=== PATIENT | female | born 2000 | race Caucasian/White ===

== ENCOUNTER 2020-09-14 10:12 | Outpatient (REF) | payer OTHER, MEDICAID, SELFPAY ==
[2020-09-15 10:10] LABS: BV Int Neg Control Negative (Negative); BV Int Pos Control Positive (Positive)
== END 2020-09-14 10:13 | disposition home or self-care (01) ==
LOC: HO.LAB 10:12
PROVIDERS: PCP Internal Medicine; Referring Provider Internal Medicine; Visit Provider Advanced Practice Midwife
DX: Z20.828 Contact with and (suspected) exposure to other viral communicable diseases (principal); Z01.419 Encounter for gynecological examination (general) (routine) without abnormal findings; N89.8 Other specified noninflammatory disorders of vagina; Z97.5 Presence of (intrauterine) contraceptive device
CPT/HCPCS: 87480; 87510; 87660

== ENCOUNTER 2021-12-19 10:14 | Outpatient (REF) | payer MEDICAID, SELFPAY ==
[2021-12-19 16:34] LABS: CT PCR NOT DETECTED (Not Detect.); NG PCR NOT DETECTED (Not Detect.)
== END 2021-12-19 10:15 | disposition home or self-care (01) ==
LOC: HO.LAB 10:14
PROVIDERS: PCP Internal Medicine; Visit Provider Advanced Practice Midwife
DX: Z01.419 Encounter for gynecological examination (general) (routine) without abnormal findings (principal); Z20.2 Contact with and (suspected) exposure to infections with a predominantly sexual mode of transmission
CPT/HCPCS: 87491; 87591

== ENCOUNTER 2023-05-27 13:52 | Outpatient (REF) | payer OTHER, SELFPAY ==
[2023-05-27 16:34] LABS: Cholesterol 156 mg/dL; HDL Cholesterol 52 mg/dL; LDL Cholesterol Calculated 94 mg/dl; Triglycerides 52 mg/dL
[2023-05-27 16:51] LABS: TSH reflex Free T4 1.98 uIU/mL (0.32-4.0); Vitamin D 25-OH Total 34.3 ng/mL (>30)
== END 2023-05-27 13:53 | disposition home or self-care (01) ==
LOC: HO.HHCL 13:52
PROVIDERS: Visit Provider Registered Nurse
DX: G54.0 Brachial plexus disorders (principal)
CPT/HCPCS: 36415; 80061; 82306; 84443

== ENCOUNTER 2025-09-06 16:03 | Outpatient (REF) | payer OTHER, SELFPAY ==
--- OUTSIDE RECORDS SUMMARY | 2025-09-06 15:15 | XMS_ITS | Encounter Summary ---
Author Organization [employer] Address [address] [place] [address] 7 [place] [address] Care Team Providers Care Surgical Oncologist Name Role Phone Cheyenne Varner [facility] Primary Care Provider [phone] Reason for Visit * Reason Comments pap Encounter Details Date Type Department Care Team (Latest Contact Info) Description 09/06/2025 3:15 PM EST Procedure Visit [facility] [address] [place] [address] Naina Flood CN [address] [place] [address] Routine cervical smear (Primary Dx); Screening examination for venereal disease Social History Tobacco Use Types Packs/Day Years Used Date Smoking Tobacco: Never Passive Smoke Exposure: Never Smokeless Tobacco: Never Tobacco Cessation:Counseling Given: Not Answered Alcohol Use Standard Drinks/Week Comments Never 0 (1 standard drink = 0.6 oz pur e alcohol) Depression Answer Date Recorded Patient Health Questionnaire-9 Score 0 11/22/2024 Patient Health Questionnaire-9 Score 0 11/22/2024 Last PHQ-9: Questionnaire Data Not on file 0 11/22/2024 Housing Stability Answer Date Recorded What is your housing situation today? I have montez mcneal 11/22/[address] you li ve. Do you have problems with any of the following? None of the above 11/22/2024 Food Insecurity Answer Date Recorded Within the past 12 months, y ou worried that your food would run out before you got money to buy more: Never True 11/22/2024 Within the past 12 months,th e food you bought just didn't last and you didn't have enough money to get more: Never True 07/2025 Transportation Answer Date Recorded In the past 12 months, has l ack of transportation kept you from medical appts, meetings, work or from getting things needed for daily living? No 11/22/2024 Utilities Answer Date Recorded In the past 12 months, has t he electric, gas, oil or water company threatened to shut off services in your home? No 11/22/2024 Depression Answer Date Recorded Patient Health Questionnaire-2 Score 0 11/22/2024 Internet Access Answer Date Recorded Internet Access Q1 Yes 11/22/2024 Internet Access Q2 Not on file 11/22/2024 Comments No Intention Date Recorded No desire to become (finding) 1 11/06/2024 Sex and Gender Information Value Date Recorded Sex Assigned at Female 08/12/2022 10:37 AM EDT Legal Sex Female 10:37 AM EDT Gender Identity Choose not to disclose 10:37 AM EDT Sexual Orientation Choose not to disclose 2021 10:37 AM EDT documented as of this encounter Last Filed Vital Signs Vital Sign Reading Time Taken Comments Blood Pressure 110/68 09/06/2025 3:42 PM EST Pulse 91 09/06/2025 3:42 PM EST Temperature 36.1 C (97 F) 09/06/2025 3:42 PM EST Respiratory Rate 14 09/06/2025 3:42 PM EST Oxygen Saturation 98% 09/06/2025 3:42 PM EST Inhaled Oxygen Concentration - - Weight 70.2 kg (154 lb 12.8 oz) 09/06/2025 3:42 PM EST Height - - Body Mass Index 26.57 11/22/2024 10:01 AM EST documented in this encounter Progress Notes * Naina Flood CNM - 09/06/2025 3:15 PM EST Subjective Patient ID: Madonna Nguyen is a 25 y.o. adult who presents for pap Gonorrhea/Chlamydia, HIV, syphilis, Hep C neg 04/2020. Per previous notes, last pap 2019. Last sexually active 4-6 weeks ago with former AMAB partner. Vaginal and oral sex. Would like STI testing today. Noted some irritation after using new vaginal wash which seems to have resolved. 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 Not planning in the next year. Happy with condoms. Had ParaGard expulsion, mood changes on oral contraceptive pill. Monthly menses x 5 days. Heavier first two days, but manageable. Cramping responds to Midol. Review of Systems Genitourinary: Negative for dyspareunia, dysuria, frequency, genital sores, hematuria, menstrual problem, pelvic pain, urgency, vaginal bleeding, vaginal discharge and vaginal pain. No abnormal pap, no abnormal bleeding, no breast pain, no breast mass, no nipple discharge Objective BP 110/68 (BP Location: Left arm, Patient Position: Sitting, BP Cuff Size: Adult) Pulse 91 Temp97 ??F (36.1 ??C) (Oral) Resp 14 Wt 154 lb 12.8 oz (70.2 kg) LMP 08/12/2025 (Exact Date) SpO2 98% BMI 26.57 kg/m?? Physical Exam Bullard Operator present: declines mechanical intern. Constitutional: Appearance: Normal appearance. Chest: Breasts: Right: Normal. No swelling, bleeding, inverted nipple, mass, nipple discharge, skin change or tenderness. Left: Normal. No swelling, bleeding, inverted nipple, mass, nipple discharge, skin change or tenderness. Genitourinary: General: Normal vulva. Labia: Right: No rash, tenderness, lesion or injury. Left: No rash, tenderness, lesion or injury. Vagina: Normal. No signs of injury and foreign body. No vaginal discharge, erythema, tenderness, bleeding or lesions. Cervix: No cervical motion tenderness, discharge, friability, lesion, erythema, cervical bleeding or eversion. Uterus: Normal. Not enlarged and not tender. Adnexa: Right adnexa normal and left adnexa normal. Right: No mass, tenderness or fullness. Left: No mass, tenderness or fullness. Lymphadenopathy: Upper Body: Right upper body: No supraclavicular or axillary adenopathy. Left upper body: No supraclavicular or axillary adenopathy. Neurological: Mental Status: Solanny is alert. Psychiatric: Mood and Affect: Mood normal. Behavior: Behavior normal. Assessment/Plan Diagnoses and all orders for this visit: Routine cervical smear - Pap Smear Pap 3 y if normal. Will contact with results and plan. No discharge on exam. If yeast/bacterial vaginosis on pap, will treat. Screening examination for venereal disease - STI testing add on (NG, CT, Trich) - Chlamydia/N. Gonorrhoeae RNA, TMA, Throat; Future - Syphilis Screen; Future - HIV-1/2 Antigen and Antibodies, Fourth Generation, with Reflexes; Future - Hepatitis C Antibody with Reflex to HCV, RNA, Quantitative, Real-Time PCR; Future - Hepatitis B surface antigen, EIA; Future - Hepatitis B Surface Antibody, Qualitative; Future - Hepatitis B Core Antibody, Total; Future Oral, pap based and serum STI labs ordered. Briefly discussed PrEP and DoxyPEP. Let me know if interested in either. Happy with condoms, aware of EC at pharmacy. documented in this encounter Plan of Treatment Scheduled Orders Name Type Priority Associated Diagnoses Order Schedule Pap Smear Pathology and Cytology Routine Routine cervical smear Ordered: 09/06/2025 STI testing add on (NG, CT, Trich) Pathology and Cytology Routine Screening examination for venereal disease Ordered: 09/06/2025 Chlamydia/N. Gonorrhoeae RNA, TMA, Throat Microbiology Routine Screening examination for venereal disease Expected: 09/06/2025 (Approximate), Expires: 09/06/2026 Syphilis Screen Lab Routine Screening examination for venereal disease Expected: 09/06/2025 (Approximate), Expires: 09/06/2026 HIV-1/2 Antigen and Antibodies, Fourth Generation, with Reflexes Lab Routine Screening examination for venereal disease Expected: 09/06/2025 (Approximate), Expires: 09/06/2026 Hepatitis C Antibody with Reflex to HCV, RNA, Quantitative, Real-Time PCR Lab Routine Screening examination for venereal disease Expected: 09/06/2025 (Approximate), Expires: 09/06/2026 Hepatitis B surface antigen, EIA Lab Routine Screening examination for venereal disease Expected: 09/06/2025 (Approximate), Expires: 09/06/2026 Hepatitis B Surface Antibody, Qualitative Lab Routine Screening examination for venereal disease Expected: 09/06/2025 (Approximate), Expires: 09/06/2026 Hepatitis B Core Antibody, Total Lab Routine Screening examination for venereal disease Expected: 09/06/2025 (Approximate), Expires: 09/06/2026 documented as of this encounter Visit Diagnoses Diagnosis Routine cervical smear- Primary Screening for malignant neoplasm of the cervix Screening examination for venereal disease documented in this encounter Additional Health Concerns Assessment Noted Time PHQ-9 Depression Total Score: 0 11/22/19 25 10:14 AM EST documented as of this encounter Care Teams Surgical Oncologist Relationship Specialty Start Date End Date Cheyenne Varner FNP [address] [place] [id number] PCP - General Family Medicine 12/23/22 documented as of this encounter
--- OUTSIDE RECORDS SUMMARY | 2025-09-06 19:25 | XMS_ITS | Clinical Summary ---
Author Organization [employer] Address [address] [facility] [address]t [place] [address] Care Team Providers Care Lion Tamer Name Role Phone Cheyenne Varner [facility] Primary Care Provider [phone] Allergies No known active allergies Medications * This document contains information received from the source organization and may not represent a complete record from that organization. magnesium oxide (Mag-Ox) 400 mg tablet 400 mg in the morning. Active ergocalciferol (Vitamin D-2) 1.25 MG (45217 UT) capsule Take 2,000 mg by mouth in the morning. Active Ascorbic Acid (vitamin C) 250 MG tablet Take 250 mg by mouth in the morning. Active Active Problems Problem Noted Date Diagnosed Date LAVELLE (generalized anxiety disorder) 06/02/2023 Overview (06/27/2023): 1. Hx of excessive worrying/social anxiety. Denies SI or thoughts of self harm. No sleep disturbance. No current or former medication use. No hx of therapy. No family hx of schizophrenia or mood disorder 2. Buproprion 150mg XL Assessment & Plan (06/27/2023 1:45 PM EDT): Doing well overall Continue current regimen Follow up in person 8 weeks Assessment & Plan (06/06/2023 10:23 AM EDT): Patient with excessive anxiety symptoms (difficulty to control worry, on edge, sleep disturbance and fatigued). Symptoms occur nearly everyday and have been present for the last eight months as reported by patient. Symptoms are causing significant distress affecting her academic performance. Madonna denies current SI. Presentation of symptoms in the context of transitioning careers and history of anxiety since high school. Patient will benefit from receiving OP individual therapy and meditation techniques to help decrease anxiety symptoms. At this time Madonna Nguyen meets criteria for Visit Diagnoses: Problem List Items Addressed This Visit Other LAVELLE (generalized anxiety disorder) Patient ready to address current needs Yes Strengths include creativity and writing skills. Madonna likes journaling and make personalized postcards. PLAN: 1. Follow up with [facility] [place]: Not recommended for follow-up 2. Patient goal is to feel less depressed and continue her college education 3. Behavioral Recommendations a. Start OP individual therapy b. Incorporate physical exercise into daily routine c. Practice mindfulness techniques Thoracic outlet syndrome 05/26/2023 Encounters Date Type Department Care Team Description 09/06/2025 3:15 PM EST Procedure Visit [facility] MEDICINE [address] [place] [id number] Naina Flood CNM Routine cervical smear (Primary Dx); Screening examination for venereal disease 09/06/2025 Travel 09/05/2025 Telephone [facility] [address] [place] [phone] Naina Flood CNM chart prep from Last 3 Months Immunizations Immunization Administration Dates Next Due DTaP 05/31/2003, 1,1999,08/13 HPV, Quadrivalent 07/13/2014,11/11/2013 Hep A, Unspecified 10/26/2008,05/03/2008 Hep B, Unspecified 05/27/2003,1999, 999 HiB, unspecified 05/25/2003,08/14/2000, 0 IPV 11/24/2003, 3,1999,10/17,1999 Influenza Injectable Quadriv alant Preservative Free IIV4 MDCK 09/01/2018 Influenza injectable quadriv alent preservative free 10/09/2021,12/21/2019,11/11/2013 Influenza live intranasal qu adrivalent LIAV4 07/13/2014 Influenza live intranasal trivalent 08/23/2008 Influenza, IIV3, injectable 09/18/2016, 5 Influenza, Unspecified 10/22/2012,08/22/2010,06/2009 Influenza, live, intranasal 08/23/2008 Influenza, seasonal, injecta ble, preservative free 11/22/2024 MMR 10/09/2007,05/27/2003 Meningococcal ACWY, unspecified 02/20/2011 Meningococcal B, Omv 09/18/2016 Meningococcal MCV4P ACYW-135 09/14/2015 Moderna Covid-19 Vaccine 6+ Bivalent 02/20/2023 Tdap 10/09/2021,09/01/2018,02/20/2011 Varicella 05/03/2008,05/27/2003 Family History Medical History Relation Name Comments Breast cancer Neg Hx Colon cancer Neg Hx Ovarian cancer Neg Hx Social History Tobacco Use Types Packs/Day Years [...] not to disclose 2021 10:37 AM EDT Last Filed Vital Signs Vital Sign Reading Time Taken Comments Blood Pressure 110/68 09/06/2025 3:42 PM EST Pulse 91 09/06/2025 3:42 PM EST Temperature 36.1 C (97 F) 09/06/2025 3:42 PM EST Respiratory Rate 14 09/06/2025 3:42 PM EST Oxygen Saturation 98% 09/06/2025 3:42 PM EST Inhaled Oxygen Concentration - - Weight 70.2 kg (154 lb 12.8 oz) 09/06/2025 3:42 PM EST Height 162.6 cm (5' 4 ) 11/22/2024 10:0 1 AM EST Body Mass Index 26.57 11/22/2024 10:01 AM EST Plan of Treatment Health Maintenance Due Date Last Done Comments Disability Screening 1999 Hepatitis A Vaccines (2 of 2 - Risk 2-dose series) 04/25/2009 10/26/2008, 05/03/2008 Meningococcal B Vaccine (2 of 2 - Bexsero SCDM 2-dose series) 03/19/2017 09/18/2016 Pap Smear 2020 COVID-19 Vaccine ( season) 2025 02/20/2023, 10/09/2021, 03/07/2021, Additional history exists Influenza Vaccine (#1) 2025 , 10/09/2021, 12/21/2019, Additional history exists Alcohol/Substance Use Screening 11/22/2025 11/22/2024 Depression Screening 11/22/2025 11/22/2024, 11/22/19 SDOH Screening 11/22/2025 11/22/2024 Family Planning (PISQ) 09/06/2026 09/06/2025 Tobacco Screening 09/06/2026 09/06/2025 DTaP/Tdap/Td Vaccines (8 - Td or Tdap) 10/09/2031 10/09/2021, 09/01/2018, 02/20/2011, Additional history exists Zoster Vaccines (1 of 2) 2049 RSV Patients and Patients Aged 60 years or older (1 - 1-dose 75+ series) 2074 HIB Vaccines Completed 05/25/2003, 11/1999, 06/23/2000 Hepatitis B Vaccines Completed 05/27/2003, 1999, 1999 IPV Vaccines Completed 11/24/2003, 05/13, 1999, Additional history exists HPV Vaccines Completed 07/13/2014, 11/11/2013 Meningococcal Vaccine Completed 09/14/2015, 011 HIV Screening Completed 05/05/2020 Hepatitis C Screening Completed 05/05/2020 Pneumococcal Vaccine: Pediatrics (0 to 5 Years) and At-Risk Patients (6 to 49) Years Aged Out No longer eligible based on patient's age to complete this topic RSV under 20 months Aged Out No longe r eligible based on patient's age to complete this topic Rotavirus Vaccines Aged Out No longer eligible based on patient's age to complete this topic Procedures Procedure Name Priority Date/Time Associated Diagnosis Comments ZZZ HISTORICAL HEPATITIS C AB W/REFL TO HCV RNA, QN, PCR Routine 05/05/2020 9:32 AM EDT HIV 1/2 ANTIGEN/ANTIBODY, FOURTH GENERATION W/RFL Routine 05/05/2020 9:32 AM EDT from Last 3 Months or Most Recently Relevant to Health Maintenance Results * HEPATITIS C AB W/REFL TO HCV RNA, QN, PCR (05/05/2020 9:32 AM EDT) HEPATITIS C ANTIBODY NON-REACT AROLDO NON-REACT AROLDO [facility] INDEX 0.01 <1.00 [facility] Comment: HCV antibody was non-reactive. There is no laboratory evidence of HCV infection. In most cases, no further action is required. However, if recent HCV exposure is suspected, a test for HCV RNA (test code 56293) is suggested. For additional information please refer to http://[employer]/faq/DFL11k6 (This link is being provided for informational/ educational purposes only.) HEPATITIS C ANTIBODY NON-REACT AROLDO NON-REACT AROLDO [facility] INDEX 0.01 <1.00 [facility] Comment: HCV antibody was non-reactive. There is no laboratory evidence of HCV infection. In most cases, no further action is required. However, if recent HCV exposure is suspected, a test for HCV RNA (test code 22413) is suggested. For additional information please refer to http://[employer]/faq/BSN00w8 (This link is being provided for informational/ educational purposes only.) HEPATITIS C ANTIBODY NON-REACT AROLDO NON-REACT AROLDO [facility] INDEX 0.01 <1.00 [facility] Comment: HCV antibody was non-reactive. There is no laboratory evidence of HCV infection. In most cases, no further action is required. However, if recent HCV exposure is suspected, a test for HCV RNA (test code 12486) is suggested. For additional information please refer to http://[employer]/faq/ZRI58z0 (This link is being provided for informational/ educational purposes only.) HEPATITIS C ANTIBODY NON-REACT AROLDO NON-REACT AROLDO [facility] INDEX 0.01 <1.00 [facility] Comment: HCV antibody was non-reactive. There is no laboratory evidence of HCV infection. In most cases, no further action is required. However, if recent HCV exposure is suspected, a test for HCV RNA (test code 81475) is suggested. For additional information please refer to http://[employer]/faq/IQA95o6 (This link is being provided for informational/ educational purposes only.) 05/05/2020 9:32 AM EDT us Peggy See MD HISTORICAL/NON ORDERABLE LAB S Final Result [facility] [address] * HIV 1/2 ANTIGEN/ANTIBODY,FOURTH GENERATION W/RFL (05/05/2020 9:32 AM EDT) HIV-1/2 ANTIGEN AND ANTIBODIES, 4TH GENERATION W/ REFLEX NON-REACT AROLDO NON-REACT AROLDO [facility] Comment: HIV-1 antigen and HIV-1/HIV-2 antibodies were not detected. There is no laboratory evidence of HIV infection. PLEASE NOTE: This information has been disclosed to you from records whose confidentiality may be protected by state law. If your state requires such protection, then the state law prohibits you from making any further disclosure of the information without the specific written consent of the person to whom it pertains, or as otherwise permitted by law. A general authorization for the release of medical or other information is NOT sufficient for this purpose. For additional information please refer to http://[employer]/faq/GNL303 (This link is being provided for informational/ educational purposes only.) The performance of this assay has not been clinically validated in patients less than 2 years old. HIV-1/2 ANTIGEN AND ANTIBODIES, 4TH GENERATION W/ REFLEX NON-REACT AROLDO NON-REACT AROLDO [facility] Comment: HIV-1 antigen and HIV-1/HIV-2 antibodies were not detected. There is no laboratory evidence of HIV infection. PLEASE NOTE: This information has been disclosed to you from records whose confidentiality may be protected by state law. If your state requires such protection, then the state law prohibits you from making any further disclosure of the information without the specific written consent of the person to whom it pertains, or as otherwise permitted by law. A general authorization for the release of medical or other information is NOT sufficient for this purpose. For additional information please refer to http://[employer]/faq/UXO637 (This link is being provided for informational/ educational purposes only.) The performance of this assay has not been clinically validated in patients less than 2 years old. 05/05/2020 9:32 AM EDT us Peggy See MD LAB BLOOD ORDERABLES Final R esult [facility] [address] [place] [address], from Last 3 Months or Most Recently Relevant to Health Maintenance Insurance [employer] OPEN ACCESS Care Teams Lion Tamer Relationship Specialty Start Date End Date Cheyenne Varner FNP [address] [place] [address] PCP - General Family Medicine 12/23/22
--- OUTSIDE RECORDS SUMMARY | 2025-09-06 19:25 | XMS_ITS | Encounter Summary ---
Author Organization [employer] Address [address] [facility] 7 [place] [address] Care Team Providers Care County Adviser Name Role Phone Cheyenne Varner AWS DEVELOPER Primary Care Provider [phone] Reason for Visit * Reason Onset Date Comments chart prep 09/05/2025 Encounter Details Date Type Department Care Team ([facility] Contact Info) Description 09/05/2025 Telephone [facility] [address] [place] [address] Naina Flood CNM [address] [place] [address] chart prep Social History Tobacco Use Types Packs/Day Years Used Date Smoking Tobacco: Never Passive Smoke Exposure: Never Smokeless Tobacco: Never Alcohol Use Standard Drinks/Week Comments Never 0 [...] Q2 Not on file 11/22/2024 Comments No Sex and Gender Information Value Date Recorded Sex Assigned at Female 08/12/2022 10:37 AM EDT Legal Sex Female 10:37 AM EDT Gender Identity Choose not to disclose 10:37 AM EDT Sexual Orientation Choose not to disclose 2021 10:37 AM EDT documented as of this encounter Miscellaneous Notes * Telephone Encounter - Jennifer Nowak MA - 09/05/2025 2:28 PM EST Chart Prep Labs: not done Images: not done Screenings: Not Applicable Vaccines due: Covid Due, Hep A Due, Flu Due, and MCV4 Due Referrals: Not Applicable Overdue care gaps: GAD7, Disability , and Oral Health documented in this encounter Plan of Treatment Not on file documented as of this encounter Visit Diagnoses Not on filedocumented in this encounter Additional Health Concerns Assessment Noted Time PHQ-9 Depression Total Score: 0 11/22/19 25 10:14 AM EST documented as of this encounter Care Teams County Adviser Relationship Specialty Start Date End Date Cheyenne Varner FNP [address] [place] [id number] PCP - General Family Medicine 12/23/22 documented as of this encounter
--- OUTSIDE RECORDS SUMMARY | 2025-09-06 19:25 | XMS_ITS | Clinical Summary ---
Author Organization [facility] Address [address] [place] [address] Care Team Providers Care Housekeeper Manager Name Role Phone Nancy Ludwig MD Primary Care Provider Unava ilable Allergies No known active allergies Medications Medication Sig Dispensed Refills Start Date End Date Status norelgestromin-ethinyl estradiol (ORTHO EVRA) 150-35 MCG/24HRIndications:Enco unter for initial prescription of transdermal patch hormonal contraceptive device Place 1 Patch onto the skin once a week. 9 Patch 0 10/27/2018 Active Active Problems No known active problems Immunizations Name Administration Dates Next Due Influenza Vaccine-preservati ve Free-quadrivalent 4 Years 09/01/2018 Tdap 09/01/2018 Family History Medical History Relation Name Comments No Known Problems Father No Known Problems Mother Relation Name Status Comments Father Mother Social History Tobacco Use Types Packs/Day Years Used Date Smoking Tobacco: Never Smokeless Tobacco: Never Alcohol Use Standard Drinks/Week Comments Yes 0 (1 standard drink = 0.6 oz pur e alcohol) occ Sex Assigned at Date Recorded Not on file Last Filed Vital Signs Vital Sign Reading Time Taken Comments Blood Pressure 92/60 10/27/2018 10:52 AM EST Pulse 80 10/27/2018 10:52 AM EST Temperature 36.2 C (97.2 F) 09/01/2018 2:16 PM EST Respiratory Rate 16 10/27/2018 10:52 AM EST Oxygen Saturation - - Inhaled Oxygen Concentration - - Weight 62.7 kg (138 lb 3.2 oz) 10/27/2018 10:52 AM EST Height 160 cm (5' 3 ) 10/27/2018 10:52 AM EST Body Mass Index 24.48 10/27/2018 10:52 AM EST Plan of Treatment Health Maintenance Due Date Last Done Comments Covid-19 Vaccine (#1) 1999 CERVICAL CANCER SCREENING 2020 BASELINE HEALTH EXAM 18-39 09/01/2023 09/01/2018, CHOLESTEROL SCREENING 09/01/2023 09/01/2018 INFLUENZA (#1) 2025 09/01/2018, 08/23/2008 DTAP/TDAP/TD (7 - Td or Tdap) 09/01/2028, 02/20/2011, 05/31/2003, Additional history exists PNEUMOCOCCAL VACCINE FOR HIG H RISK PATIENTS (#1) 2064 Care Teams Housekeeper Manager Relationship Specialty Start Date End Date Nancy Ludwig MD PCP - General Internal Medicine 10/14/17
--- OUTSIDE RECORDS SUMMARY | 2025-09-06 19:26 | XMS_ITS | Encounter Summary ---
Author Organization [employer] Address [address] [place] [address] Care Team Providers Care Die Grinder Name Role Phone Cheyenne Varner [facility] Primary Care Provider [phone] Encounter Details Date Type Department Care Team (Latest Contact Info) Description 09/06/2025 Travel Social History Tobacco Use Types Packs/Day Years [...] AM EDT documented as of this encounter Plan of Treatment Not on file documented as of this encounter Visit Diagnoses Not on filedocumented in this encounter Additional Health Concerns Assessment Noted Time PHQ-9 Depression Total Score: 0 11/22/19 25 10:14 AM EST documented as of this encounter Care Teams Die Grinder Relationship Specialty Start Date End Date Cheyenne Varner FNP [address] [place] [id number] PCP - General Family Medicine 12/23/22 documented as of this encounter
[2025-09-07 05:08] LABS: Syphilis Screen Nonreactive (Nonreactive)
[2025-09-07 05:32] LABS: HBS Num1 0.38 mIU/mL (0-7.99); HBc Num1 0.05 S/CO (0.00-0.79); HBsAGNum1 0.33 S/CO (0.00-0.99); HIV Num 1 0.06 S/CO (0.00-0.99); Hepatitis B Surface Antigen Negative (Negative); ~HepC Num1 0.11 S/CO (0.00-0.79); ~Hepatitis B Surface Antibody NONREACTIVE (Nonreactive); ~Hepatitis C Antibody Nonreactive (Nonreactive)
[2025-09-07 14:44] LABS: C. trachomatis RNA TMA NOT DETECTED (NOT DETECTED); N. gonorrhoeae RNA TMA NOT DETECTED (NOT DETECTED)
[2025-09-09 15:58] LABS: Trichomonas (NAAT) NOT DETECTED (NOT DETECTED)
[2025-09-09 22:28] LABS: C. trachomatis RNA TMA NOT DETECTED (NOT DETECTED); N. gonorrhoeae RNA TMA NOT DETECTED (NOT DETECTED)
== END 2025-09-06 16:04 | disposition home or self-care (01) ==
LOC: HO.HHCL 16:03
PROVIDERS: PCP Registered Nurse; Visit Provider Advanced Practice Midwife
DX: Z12.4 Encounter for screening for malignant neoplasm of cervix (principal); Z20.2 Contact with and (suspected) exposure to infections with a predominantly sexual mode of transmission
CPT/HCPCS: 36415; 86704; 86706; 86780; 86803; 87340; 87389; 87491; 87591; 87626; 87661; 88175